=== PATIENT | female | born 1990 | race Caucasian/White ===

== ENCOUNTER 2016-10-03 14:21 | Inpatient (IN) | payer BC ==
[~2016-10-03] VITALS: Ht 160 cm; Wt 90.9 kg
[2016-10-30] VITALS (17 sets, daily range): BP systolic 112–138; BP diastolic 54–92; PULSE 72–118; TEMP 97.4–97.8
[2016-10-30] MEDS ORDERED: IRON325 M2 PO (09:35)
[2016-10-30] MEDS ORDERED: PRENATAL1 TA7 PO (09:35)
[2016-10-30 10:35] LABS: BASO % 0.3 % (0.0-2.0); EOS % 0.3 % (0-4.0); GRAN # 7.8 (1.4-6.5); GRAN % 68.1 % (42.2-75.2); LYMPH # 2.6 (1.2-3.4); LYMPH % 23.2 % (20.0-51.0); MEAN CELL VOLUME 88 fl (80.0-100.0); MEAN CORPUSCULAR HGB CONC 33 g/dl (33.0-37.0); MEAN PLATELET VOLUME 8.8 fl (7.4-10.4); MONO # 0.9 (0.1-0.6); MONO % 7.7 % (1.7-9.3); PLATELET COUNT 274 K/mm3 (130-400); RED BLOOD COUNT 3.68 M/mm3 (4.10-5.30); REDCELL DISTRIBUTION WIDTH-CV 15.2 % (11.5-14.5); WHITE BLOOD COUNT 11.4 K/mm3 (4.8-10.8)
[2016-10-30 10:54] LABS: HEMATOCRIT 32.5 % (37.0-47.0); HEMOGLOBIN 10.6 g/dl (12.5-16.0); MEAN CORPUSCULAR HEMOGLOBIN 29 pg (27.0-31.0)
[2016-10-31 02:40] VITALS: BP 130/63; PULSE 82; TEMP 97.6
[2016-10-31 07:37] LABS: BASO % 0.3 % (0.0-2.0); EOS % 0.3 % (0-4.0); GRAN # 7.1 (1.4-6.5); GRAN % 62.2 % (42.2-75.2); LYMPH # 3.3 (1.2-3.4); LYMPH % 28.6 % (20.0-51.0); MEAN CELL VOLUME 90 fl (80.0-100.0); MEAN CORPUSCULAR HGB CONC 32 g/dl (33.0-37.0); MONO % 8.3 % (1.7-9.3); PLATELET COUNT 250 K/mm3 (130-400); RED BLOOD COUNT 3.43 M/mm3 (4.10-5.30); REDCELL DISTRIBUTION WIDTH-CV 15.7 % (11.5-14.5); WHITE BLOOD COUNT 11.5 K/mm3 (4.8-10.8)
[2016-10-31 07:41] VITALS: BP 112/53; PULSE 78; TEMP 98.1
[2016-10-31 07:55] LABS: HEMATOCRIT 30.8 % (37.0-47.0); HEMOGLOBIN 9.9 g/dl (12.5-16.0); MEAN CORPUSCULAR HEMOGLOBIN 29 pg (27.0-31.0)
[2016-10-31 16:01] VITALS: BP 102/68; PULSE 76; TEMP 98.1
[2016-10-31 19:45] VITALS: BP 148/81; PULSE 80; TEMP 97.9
[2016-11-01] MEDS ORDERED: IBU800 M1 PO (08:58)
[2016-11-01] MEDS ORDERED: PERCOCET 325 MG1 TA2 PO (08:58)
[2016-11-01 09:40] VITALS: BP 123/77; PULSE 68; TEMP 97.7
== END 2016-11-01 10:50 | disposition home or self-care (01) | DRG 766 ==
LOC: OB 10-30 09:06 → LDR 10-30 10:43 → OB 11-01 10:50 → EDSTATUS 11-02 10:29 → LDRO 11-02 14:20
PROVIDERS: Student in an Organized Health Care Education/Training Program
PROC: 10D00Z1 Extraction of Products of Conception, Low, Open Approach (ICD-10-PCS; principal; 2016-10-30)
DX: O34.211 Maternal care for low transverse scar from previous cesarean delivery (principal); N85.8 Other specified noninflammatory disorders of uterus; O34.13 Maternal care for benign tumor of corpus uteri, third trimester; D25.9 Leiomyoma of uterus, unspecified; Z3A.39 39 weeks gestation of pregnancy; Z37.0 Single live birth
CPT/HCPCS: J0690; J1885; J2270; J2370; J2405; J2590; J7120